=== PATIENT | male | born 1985 | race Two or more races ===

== ENCOUNTER 2018-06-15 00:15 | Emergency (ER) | payer SELFPAY ==
[2018-06-15] VITALS (9 sets, daily range): BP systolic 128–166; BP diastolic 77–106
[~2018-06-15] VITALS: Ht 175.3 cm; Wt 99.8 kg
--- NOTE | 2018-06-15 00:36 | Emergency Room Report ---
History of Present Illness General Chief Complaint: Upper Extremity Injury Source: Patient Present Illness HPI Is a 32-year-old male who is right-hand dominant. He has a history of recurrent right shoulder dislocation. He presents with left shoulder pain and dislocation. He was walking up a ramp and fell onto his left side. When he got up he felt his shoulder dislocated. Pain is severe 10 out of 10. No nausea no vomiting. Worse with movement. Better with holding still. No radiation. No head injury. Never had left shoulder dislocation. Allergies: Coded Allergies: No Known Allergies (Unverified , 06/15/18) Patient History Past Medical History: none, see triage record, old chart reviewed Past Surgical History: other Pertinent Family History: none Social History: Denies: smoking Immunizations: other Reviewed Nursing Documentation: PMH: Agreed; PSxH: Agreed Nursing Documentation-PMH Past Medical History: No Stated History Review of Systems Eye: Denies: eye pain, blurred vision ENT: Denies: ear pain, nose congestion, throat swelling Respiratory: Denies: cough, shortness of breath Cardiovascular: Denies: chest pain, palpitations Gastrointestinal: Denies: abdominal pain, diarrhea, nausea, vomiting Musculoskeletal: Reports: joint pain; Denies: back pain Skin: Denies: rash Neurological: Denies: headache, numbness Endocrine: Denies: increased thirst, increased urine Hematologic/Lymphatic: Denies: easy bruising All Other Systems: negative except mentioned in HPI Physical Exam Vital Signs Date Time Temp Pulse Resp B/P (MAP) Pulse Ox O2 Delivery O2 Flow Rate FiO2 06/15/18 00:13 98.4 88 20 128/78 Room Air 06/15/18 00:25 8 vitals inge Sp02 EP Interpretation: reviewed, normal General Appearance: well appearing, no apparent distress, alert Head: normocephalic, atraumatic Eyes: bilateral eye PERRL, bilateral eye EOMI ENT: hearing grossly normal, normal pharynx Neck: full range of motion, supple, no meningismus Respiratory: chest non-tender, lungs clear, normal breath sounds Cardiovascular #1: regular rate, rhythm, no murmur Gastrointestinal: normal bowel sounds, non tender, no mass, no organomegaly, no bruit, non-distended Musculoskeletal: back normal, gait/station normal, other - Left shoulder with anterior deformity consistent with dislocation. Sensation normal over the axillary nerve. Decreased range of motion secondary to pain. Elbow nontender. Wrist nontender. Pulses normal. Psychiatric: mood/affect normal Skin: warm/dry Procedures Splinting Splinting : Consent: Verbal Location: left shoulder Pre-Made Type: shoulder immobilizer Pre-Proc Neuro Vasc Exam: normal Post-Proc Neuro Vasc Exam: normal Patient Tolerated: Well Complications: None Joint Reduction Joint Reduction : Consent: Written Joint Reduction Site: shoulder (L) Procedural Sedation: Yes Reduction Attempts: One Pre-Procedure NV Exam: Yes Post-Procedure NV Exam: Yes Post Joint Reduction Film: joint reduced Patient Tolerated: Well Complications: None Progress After receiving propofol, I did send her rotation and shoulder reduce easily. Patient tolerated procedure without a problem. No complication. Procedural Sedation Consent: Written Time out called at: 01:46 Pre-Sedation Assessment: Elective Airway Assessment (Malampati): I Heart: normal Lungs: normal Abdomen: normal Extremities: normal Procedures/Plans: Closed Reduction Plan for Moderate Sedation: Propofol ASA Score: I Procedure Narrative After consent, monitoring, oxygen, a timeout was called at 1:46 AM. Minutes was given at 1:48 AM. I reduce the shoulder without any difficulty. Patient refused procedure without a problem. No complication. Total face time 30 minutes. Start Time: 01:48 End Time: 02:38 Communication: No Apparent Limitation Mental Status: Awake Respiration: Unlabored Skin Condition: WNL Abdomen: WNL Nausea: NO Vomiting: NO Medical Decision Making Diagnostic Impression: Primary Impression: Closed anterior dislocation of left shoulder Qualified Codes: S43.015A - Anterior dislocation of left humerus, initial encounter Additional Impression: Hypertension Qualified Codes: I10 - Essential (primary) hypertension ER Course Patient with anterior left shoulder dislocation. No fracture. Reduce easily. We'll discharge home. Patient said that he has high blood pressure been on a medication. His blood pressure has been persistently 160s over 90s. We'll place him on medication. Other X-Ray Diagnostic Results Other X-Ray Diagnostic Results #1: X-Ray ordered: Left shoulder x-rays # of Views/Limited Vs Complete: 3 View Indication: Pain EP Interpretation: Yes Interpretation: no soft tissue swelling, no fractures, other - Anterior shoulder dislocation Impression: Other - anterior shoulder d/l Electronically Signed by: Pérez Ruffin MD Other X-Ray Diagnostic Results #2: X-Ray ordered: left shoulder xrays # of Views/Limited Vs Complete: 2 View Indication: Pain EP Interpretation: Yes Interpretation: no dislocation, no soft tissue swelling, no fractures Impression: Other - Successful post reduction Electronically Signed by: Pérez Ruffin MD Last Vital Signs Date Time Temp Pulse Resp B/P (MAP) Pulse Ox O2 Delivery O2 Flow Rate FiO2 06/15/18 00:25 98.4 88 20 128/78 8 Room Air Status: improved Disposition: HOME, SELF-CARE Condition: Stable Scripts Amlodipine Besylate (Norvasc) 10 Mg Tablet 10 MG ORAL DAILY, #90 TAB Prov: Pérez Ruffin MD 06/15/18 Ibuprofen* (MOTRIN*) 600 Mg Tablet 600 MG ORAL THREE TIMES A DAY, #30 TAB 0 Refills Prov: Pérez Ruffin MD 06/15/18 Hydrocodone/Acetaminophen 5-325* (HYDROCODONE/ACETAMINOPHEN 5-325*) 1 Each Tablet 1 TAB ORAL Q6H PRN for For Pain, #10 TAB 0 Refills Prov: Pérez Ruffin MD 06/15/18 Additional Instructions: Follow-up with your doctor in 7 days. Return if symptom worsen. You may need a referral to see orthopedic doctor. Pérez Ruffin MD Jun 15, 2018 00:36
[2018-06-15] MEDS ORDERED: Propofol 200mg/20ml IV ONE ×2 (01:30→01:48)
[2018-06-15] MEDS ORDERED: NORVASC10 MG ORAL (01:56)
[2018-06-15] MEDS ORDERED: IBUPROFEN600 MG ORAL (01:56)
[2018-06-15] MEDS ORDERED: HYDROCODON-ACE1 EA15 ORAL (01:56)
--- NOTE | 2018-06-15 11:20 | Diagnostic Imaging Report ---
Indication: Pain in left shoulder after slip and fall Technique: 3 views of the left shoulder Comparison: none Findings: There is an anterior dislocation of left humeral head. No definite associated fracture deformity. Impression: Positive for left shoulder dislocation. No definite associated fracture This was apparently recognized by the ER physician, as there is a subsequent postreduction imaging available
--- NOTE | 2018-06-15 11:23 | Diagnostic Imaging Report ---
Indication: Post reduction Technique: 3 views of the left shoulder Comparison: One hour earlier Findings: Interim reduction of previously demonstrated left shoulder anterior dislocation, alignment now satisfactory. No definite fracture deformity demonstrated. Impression: Successful reduction of previously demonstrated left shoulder dislocation
== END 2018-06-15 03:05 | disposition home or self-care (01) ==
LOC: EDBD 00:15 → EMR 00:54
DX: S43.015A Anterior dislocation of left humerus, initial encounter (principal); W19.XXXA Unspecified fall, initial encounter; Y92.89 Other specified places as the place of occurrence of the external cause; I10 Essential (primary) hypertension
CPT/HCPCS: 23650; 73030; 96372; 99284; J1170; J2704